=== PATIENT | male | born 1995 | race Caucasian/White ===

== ENCOUNTER 2024-10-13 14:42 | Emergency (ER) | payer BC ==
[~2024-10-13] VITALS: Ht 182.9 cm; Wt 108.8 kg
[2024-10-13 15:09] VITALS: O2SAT 99
[2024-10-13 15:39] LABS: CHLORIDE 105 mEq/L (98-107); POTASSIUM 3.9 mEq/L (3.5-5.1); SODIUM 140 mEq/L (136-145)
[2024-10-13 15:40] LABS: CALCIUM 9.6 mg/dL (8.7-10.4); CARBON DIOXIDE 28 mEq/L (21-32)
[2024-10-13 15:43] LABS: BASOPHILS % 0.7 % (0.0-2.0); EOSINOPHILS % 3.2 % (0.0-5.0); HEMATOCRIT. 48.5 % (42.0-52.0); HEMOGLOBIN. 15.9 g/dL (14.0-18.0); LYMPHOCYTES % 38.5 % (20.0-50.0); MEAN CORPUSCULAR HEMOGLOBIN 30.1 pg (28.0-32.0); MEAN CORPUSCULAR HGB CONC 32.9 g/dL (31.0-37.0); MEAN CORPUSCULAR VOLUME 91.6 fL (80.0-94.0); MEAN PLATELET VOLUME 7.9 fl (7.4-10.4); MONOCYTES % 7.1 % (2.0-8.0); NEUTROPHILS % 50.5 % (40.0-76.0); PLATELET 271 x1000/uL (130-400); RED BLOOD CELL COUNT 5.29 mill/uL (4.7-6.1); RED CELL DISTRIBUTION WIDTH 13.7 % (11.6-14.6); WHITE BLOOD COUNT 6.1 x1000/uL (4.5-11.0)
[2024-10-13 15:45] LABS: CREATININE 0.9 mg/dL (0.6-1.3); GLUCOSE 99 mg/dL (70-105); UREA NITROGEN BLOOD 5 mg/dL (9-23)
[2024-10-13 15:47] LABS: ALANINE AMINOTRANSFERASE 29 IU/L (10-49); ALBUMIN 4.7 g/dL (3.2-4.8); ASPARTATE AMINOTRANSFERASE 31 IU/L (<34); BILIRUBIN DIRECT 0.1 mg/dL (<=3.0); BILIRUBIN TOTAL 0.6 mg/dL (0.1-1.0)
[2024-10-13 15:48] LABS: PROTEIN TOTAL 7.8 g/dL (6.0-8.3)
[2024-10-13] MEDS ORDERED: ONDANSETRON 4MG ODT PO STA (17:31)
[2024-10-13] MEDS ORDERED: MAGNESIUM/ALUMINUM HYDROXIDE/SIMETHICONE 30ML UDC PO STA (17:31)
[2024-10-13] MEDS ORDERED: DICYCLOMINE 10 MG/5 ML ORAL SYR PO STA (17:31)
[2024-10-13] MEDS ORDERED: TOPUD PO (18:23)
[2024-10-13 19:02] VITALS: BP 131/83; PULSE 83; RESP 18; TEMP 36.7; O2SAT 99
[2024-10-13] MEDS ORDERED: DICYCLOMINE HCL 10MG CAPSULE PO NR (20:45)
== END 2024-10-13 19:08 | disposition home or self-care (01) ==
LOC: ER 14:42
DX: K80.20 Calculus of gallbladder without cholecystitis without obstruction (principal)
CPT/HCPCS: 99284; 74176; 80076; 80048; 83690; 85025; 36415; Q0162